=== PATIENT | male | born 1985 | race African-American/Black ===

== ENCOUNTER 2016-12-11 18:57 | Emergency (ER) | payer BC ==
--- NOTE | ~2016-12-11 | CT71 ---
[facility] A Service of [facility] RADIOLOGY TEXT RESULTS PATIENT: LISANDRA GILBERT LOCATION: [facility] : [birth year] UNIT #: [id number] AGE: [address]: Robert Stratton DO SEX: M ORDER DR: [id number] [facility] [address]. [place], [place] [address] [id number] E MR#: [id number] #: [id number] NAME: LISANDRA GILBERT : 1985 SEX: M STUDY DATE/TIME: 12/11/2016 21:56 UNIT: PHI ROOM: STUDY DESCRIPTION: CT Head Wo Contrast Attending Physician: Robert Stratton D.O. Ordering Physician: Robert Stratton D.O. Primary Care Physician: No Primary Care Physician MEDICAL IMAGING REPORT This report is preliminary unless electronic signature is present EXAM Head CT without. HISTORY Headache, weakness, lethargy since 12/08/2016. Pain is at the left side of the head . COMMENT Routine noncontrast head CT is reviewed. COMPARISON There is no prior. TECHNIQUE This CT exam was performed with one or more of the following radiation dose reduction techniques: automatic exposure control, adjustment of mA and/or kV according to patient size, and iterative reconstruction. FINDINGS There is no displaced calvarial fracture. The mastoid air cells are clear. The visualized paranasal sinuses show mild mucosal thickening. Partial opacification of the ethmoid air cells. There is more density along the tentorium bilaterally than expected. This is a subtle finding and could simply be due to some hemoconcentration but it does raise the possibility of blood along the tentorium. If there is clinical concern for meningitis or intracranial hemorrhage. Correlation with CSF sampling is recommended. Appearance is also best further characterized with an MRI to see if there is any true abnormality along the tentorium. IMPRESSION 1. There is more density seen along the tentorium than typically [facility] A Service [facility] RADIOLOGY TEXT RESULTS PATIENT: LISANDRA GILBERT LOCATION: [facility] : [birth year] UNIT #: [id number] AGE: [address]: Robert Stratton DO SEX: M ORDER DR: expected. This is a nonspecific finding and could simply reflect some hemoconcentration but the possibility of blood along the tentorium is also in the differential. If there is clinical concern for the possibility of meningitis or intracranial hemorrhage, I would recommend correlation with CSF sampling. If more imaging information is needed, an MRI might be helpful to better characterize the appearance of the tentorium and to differentiate between real and artifactual findings. 2. Mild paranasal sinus disease. STAT * RESULT Dictated by... Christel Vieira M.D. THIS IS AN ELECTRONICALLY VERIFIED REPORT Christel Vieira M.D. at 12/11/2016 10:38 PM YONY/inna TD: 12/11/2016 22:24 JOB #: [id number] MEDICAL IMAGING REPORT Page 1 of 1 COPY
--- NOTE | ~2016-12-11 | CR63 ---
[facility] A Service of [facility] RADIOLOGY TEXT RESULTS PATIENT: LISANDRA GILBERT LOCATION: [facility] : [birth year] UNIT #: [id number] AGE: [address]: Robert Stratton DO SEX: M ORDER DR: [id number] [facility] [address]. [place], [place] [address] [id number] E MR#: [id number] Acc #: [id number] NAME: LISANDRA GILBERT. : 1985 SEX: M STUDY DATE/TIME: 12/11/2016 22:01 UNIT: [facility] ROOM: STUDY DESCRIPTION: CR Chest 2 View Attending Physician: Robert Stratton D.O. Ordering Physician: Robert Stratton D.O. MEDICAL IMAGING REPORT This report is preliminary unless electronic signature is present EXAM Chest x-ray HISTORY Right-sided chest wall pain, worse with inspiration accompanied by headache and fatigue for the past 3 days. TECHNIQUE 2 views of the chest were obtained. FINDINGS 2 views of the chest show no bony abnormalities. Heart size is normal. The aorta is somewhat ectatic for a patient of this age. Correlate for collagen vascular disorder or aortic dilatation. Consider outpatient evaluation of the aorta. In the lungs there is an infiltrate in the right middle lobe. This is suspicious for pneumonia. The remaining lung cruz are clear. No pleural fluid is seen. IMPRESSION Right middle lobe infiltrate most likely representing pneumonia given the patient's history. Also noted is a somewhat ectatic thoracic aorta for a patient of this age. Consider outpatient evaluation of the aorta for dilatation. Dictated by... Stewart Kruse M.D. THIS IS AN ELECTRONICALLY VERIFIED REPORT Stewart Kruse M.D. at 12/12/2016 6:21 PM RLF/joss [facility] A Service [facility] RADIOLOGY TEXT RESULTS PATIENT: LISANDRA GILBERT LOCATION: [facility] : 89 UNIT #: [id number] AGE: [address]: Robert Stratton DO SEX: M ORDER DR: TD: 12/11/2016 22:22 JOB #: [id number] MEDICAL IMAGING REPORT Page 1 of 1 COPY
[~2016-12-11 18:57] MED LIST: DICLOFENAC PO; FLEXERIL10 MG PO
[2016-12-11 21:00] LABS: BASOPHIL% 0.3 % (0-2.5); EOSINOPHIL% 0.1 % (0.0-7.0); HEMATOCRIT 40.8 % (38.0-50.0); HEMOGLOBIN 13.7 gm/dL (13.0-16.0); LYMPHOCYTE% 11.8 % (17.0-45.0); MEAN CELL VOLUME 85.7 FL (83-96); MEAN CORPUSCULAR HEMOGLOBIN 28.7 PG (28-34); MEAN CORPUSCULAR HGB CONC 33.5 g/dL (30-36); MEAN PLATELET VOLUME 9.2 FL (6.5-11.5); MONOCYTE# 1.1 X10e3 (0-1.0); MONOCYTE% 12.8 % (3.0-12.0); NEUTROPHIL# 6.6 X10e3 (1.5-7.1); PLATELET COUNT 145 X10e3 (140-420); RED BLOOD COUNT 4.75 X10e (3.90-5.60); RED CELL DISTRIBUTION WIDTH 13.5 % (11.0-15.5); WHITE BLOOD COUNT 8.7 X10e3 (4.0-10.5)
[2016-12-11 21:12] LABS: DIFF IND NO
[2016-12-11 21:26] LABS: PARTIAL THROMBOPLASTIN TIME 29.3 SECONDS (23.5-31.3); PROTHROMBIN TIME (PATIENT) 10.9 SECONDS (9.6-11.5)
[2016-12-11 21:27] LABS: INFLUENZA A NEG (NEG); INFLUENZA B NEG (NEG)
[2016-12-11 21:31] LABS: ALBUMIN SERUM 3.8 g/dL (3.5-5.0); BILIRUBIN, DIRECT 0.2 mg/dL (0.0-0.2); BILIRUBIN,INDIRECT 0.8 mg/dL (0.0-0.9); BUN/CREATININE RATIO 14.44; CALCIUM SERUM 8.9 mg/dL (8.4-10.2); CREATININE SERUM 0.9 mg/dL (0.6-1.4); GLOM FILT RATE Estimated 133.3 mL/min (>60); POTASSIUM 3.6 mmol/L (3.5-5.1); PROTEIN TOTAL SERUM 7.6 g/dL (6.0-8.3)
[2016-12-12 00:43] LABS: GLUCOSE-CSF 66 mg/dL (50-80); PROTEIN-CSF 17 mg/dL (15-45)
[2016-12-12 01:11] LABS: CSF APPEARANCE CLEAR (CLEAR); CSF LYMPHOCYTE 100 %; CSF RBC 1 CMM (0); CSF TUBE NUMBER 1; CSF WBC 6 CMM (0-8); CSF XANTHACHROMIC NO
[2016-12-12 01:12] LABS: CSF APPEARANCE CLEAR (CLEAR); CSF LYMPHOCYTE 100 %; CSF RBC 0 CMM (0); CSF TUBE NUMBER 4; CSF WBC 6 CMM (0-8); CSF XANTHACHROMIC NO
== END 2016-12-12 02:05 | disposition home or self-care (01) ==
LOC: CED 18:57
PROVIDERS: Emergency Medicine
DX: R51 Headache (principal); J18.9 Pneumonia, unspecified organism; R93.8 Abnormal findings on diagnostic imaging of other specified body structures; F17.200 Nicotine dependence, unspecified, uncomplicated
CPT/HCPCS: 62270; 70450; 71020; 80048; 80076; 82550; 82945; 84157; 84484; 85025; 85610; 85730; 87070; 87205; 87804; 89051; 96361; 96365; 96367; 96375; 99284; J0456; J0696; J1885